=== PATIENT | male | born 1965 | race Caucasian/White ===

== ENCOUNTER 2017-02-26 14:53 | Observation (INO) | payer BC ==
[~2017-02-26] VITALS: Ht 172.7 cm; Wt 68.0 kg
--- NOTE | ~2017-02-26 | CON ---
PATIENT'S NAME: NANNETTE [facility] AGE: 51 Y [address] ROOM: [place] [address] LOCATION: GPCU ADMIT DATE: 02/26/2017 Consultation DISCHARGE DATE: FAMILY PHYSICIAN: ANNABELLA GARCIA MD ATTENDING PHYSICIAN: ANNABELLA GARCIA REFERRING PHYSICIAN: Vilma Pelayo MD REASON FOR CONSULT: Abdominal pain/chest pain. HISTORY OF PRESENT ILLNESS: This is a 51-year-old male, who was admitted through emergency room in view of history of epigastric and chest discomfort in association with nocturnal dyspnea and associated anxiety. 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 I was asked to see him in regard to this issue. Further history reveals that over the last 2-3 months, he has had trouble whereby he wakes up around 3 o'clock in the morning, breaks out in a sweat, complains of heartburn-like symptoms, at which time, he takes ibuprofen and Tums and that seems to give him temporary relief only to have similar symptoms again. He is not taking any other medications [id number]. He has not had any previous endoscopic evaluation. He denies any rectal bleeding, melena, loss of weight, or loss of appetite. He denies any dysphagia. Further, incriminating factors include use of marijuana, smoking, alcohol, and use of nonsteroidals as noted above. PAST MEDICAL HISTORY: 1. Hypertension. 2. Diabetes. 3. Previous history of smoking. PAST SURGICAL HISTORY: None. MEDICATIONS: On admission included: 1. Insulin. 2. Ibuprofen. 3. Fbmz-iuz-nfuxmit antacids. ALLERGIES: NONE KNOWN. PATIENT'S NAME: CHAS BRUNSON [facility] AGE: 51 Y [address] 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 Prior to that, has had 37- pack-year smoking. Occasional alcohol use and routine use of THC. FAMILY HISTORY: None for GI cancer or coronary artery disease. REVIEW OF SYSTEMS: The 10-point review of systems is otherwise negative except as noted in HPI. PHYSICAL EXAMINATION: GENERAL: A well-developed, well-nourished man in no acute distress. VITAL SIGNS: Stable. He is afebrile. HEENT: Atraumatic and normocephalic. Nonicteric sclerae. Pupils are round and reactive. NECK: Supple. No palpable nodes, no thyromegaly. CHEST: Clear to auscultation. HEART: S1, S2 normal. ABDOMEN: Soft and benign with no palpable masses or tenderness. EXTREMITIES: Pulses well-palpable. No edema. NEUROLOGIC: Awake, alert, appropriate without any focal deficits. LABORATORY DATA: Labs are reviewed and reveal normal CBC, normal amylase and lipase, and normal chemistry panel. ASSESSMENT AND PLAN: A 51-year-old male presenting to ER with history of epigastric chest pain and associated shortness of breath. Underwent cardiac workup, which was reported as negative. He does have symptoms to suggest acid reflux ongoing over the last 3 months, possibly exacerbated as per the use of ibuprofen, alcohol, previous smoking, and THC use. He may have associated gastroparesis, which will predispose him to reflux disease in view of associated diabetes. We discussed anti-reflux measures as well as to discontinue all gastric irritants. We will place him on Protonix 40 mg twice daily and proceed with upper endoscopy. Further recommendations post endoscopy. Thank you for this consult. PATIENT'S NAME: CHAS BRUNSON [facility] AGE: 51 Y [address] ROOM: [address] [address] LOCATION: GPCU ADMIT DATE: 02/26/2017 Consultation DISCHARGE DATE: FAMILY PHYSICIAN: ANNABELLA GARCIA MD ATTENDING PHYSICIAN: ANNABELLA GARCIA MD AM/modl /[id number] d: 02/28/17 0833 t: 02/28/17 1522, CONSULTATION REPORT
--- NOTE | ~2017-02-26 | HP ---
PATIENT'S NAME: CHAS BRUNSON [facility] AGE: 51 Y [address] ROOM: [place] [address] LOCATION: GPCU ADMIT DATE: 02/26/2017 History & Physical DISCHARGE DATE: FAMILY PHYSICIAN: ANNABELLA GARCIA MD ATTENDING PHYSICIAN: ANNABELLA GARCIA DATE OF SERVICE: CHIEF COMPLAINT: Chest pain. HISTORY OF PRESENT ILLNESS: The patient is a 51-year-old, male who is a type 1 diabetic. He has had some mild shortness of breath at night. Some anxiety with shortness of breath. He had some symptoms the day prior to admission in the ER with chest discomfort. Here in the emergency room, he was found here to have acute coronary insufficiency with ST changes on his EKG. When I see him, he is resting quietly in bed in PCU on heparin and has no chest pain. CURRENT MEDICATIONS: See nurse's note. SOCIAL HISTORY: He is and has a couple. Two to three glasses of whiskey 5 times a week. Occasionally, smokes marijuana. ALLERGIES: NONE. PREVIOUS SURGERIES/OPERATION: Clavicle on left side. FAMILY HISTORY: Negative for bleeding disorder or coronary artery disease. REVIEW OF SYSTEMS: HEENT: No recent visual changes. ENDOCRINE: He is diabetic type 1 as mentioned. HEART: As above. GI: No nausea, vomiting, diarrhea, dysphagia recently, other than having to use Rolaids p.r.n. : No dysuria or frequency. EXTREMITIES: Negative. PATIENT'S NAME: NANNETTE [facility] AGE: 51 Y [address] ROOM: [place] [address] LOCATION: GPCU ADMIT DATE: 02/26/2017 History & Physical DISCHARGE DATE: FAMILY PHYSICIAN: ANNABELLA GARCIA MD ATTENDING PHYSICIAN: ANNABELLA GARCIA NEUROLOGIC: Negative. PHYSICAL EXAMINATION: GENERAL: A red-haired male, lying in bed. HEENT: Shows pupils reactive to light. TMs not visualized. Mouth: Shows teeth in poor repair. Posterior pharynx clear. NECK: Unremarkable. I do not hear carotid bruit. Thyroid not enlarged. LUNGS: Clear without wheeze or rub. HEART: Shows no murmur, gallop, or rub. ABDOMEN: Benign without point tenderness or mass. PELVIC/RECTAL: Not done. ASSESSMENT: 1. Chest pain. 2. Abnormal EKG. 3. Type 1 diabetes mellitus. PLAN: Cardiology consultation. Continue heparin IV and further treatment as indicated. MD ADAN MCCORMACK/robinl /[id number] D: [id number] T: [id number] HISTORY & PHYSICAL
--- NOTE | ~2017-02-26 | CATH ---
Cardiac Diagnostic Report Demographics Patient Name NANNETTE Ellis Gender Male Date of 1965 Age 51 year(s) Patient Number [id number] Date of Study 02/27/2017 Visit Number [id number] Room Number G6[address] [place] [id number] Ht 172.72 cm Wt 67.59 kg Referring Guerita Ruby Primary Physician Physician Performing Pierce Secondary Physician Physician Vilma SCHMIDT Diagnostic Pierce Assisting Physician Physician Vilma SCHMIDT Interventional Physician Light Rail Vehicle Operator Physician Findings and Conclusions Diagnostic Findings and Conclusion Normal LVEDP 10. Calcification involving proximal coronaries. D2 2mm mod to severe disease. EKG changes difficult to explain on the basis of coronary anatomy. Diagnostic Recommendations Medical therapy. Procedure Description The patient was brought to the diagnostic cardiac catheterization-EP laboratory in the fasting, non-sedated state. Informed consent was obtained in the written and verbal form after the risks and benefits were explained. The patient had no further questions and agreed to proceed. The planned puncture-incision site(s) were shaved and prepped with ChloraPrep and draped in the usual sterile manner. Conscious sedation, supplemental oxygen, and pain control medications were delivered by a registered nurse under physician guidance. Surface ECG rhythm, blood pressure measurement, and pulse oximetry were monitored throughout the procedure. Arterial access. The access site was infiltrated with lidocaine. The vessel was entered with the Seldinger technique. A sheath was advanced into the vessel and used for catheter placement. Selective left coronary angiography. A catheter was advanced into the left coronary vessel ostium under Fluoroscopic guidance. Contrast was injected by hand. Images were obtained in multiple projections. Selective right coronary angiography. A catheter was advanced into the right coronary vessel ostium under fluoroscopic guidance. Contrast was injected by hand. Images were obtained in multiple projections. Left heart catheterization. A catheter was advanced across the aortic valve to the left ventricle under fluoroscopic guidance. Resting hemodynamics were obtained. Arterial artery hemostasis was achieved. The patient was transferred to a regular nursing floor via cart accompanied by a nurse. The patient left the laboratory in stable condition. Diagnostic Cath Status: Urgent Procedure Procedure Type Diagnostic procedure:Angiography:, Coronary Angios w/[facility] Indications: Chest pain and Non-ST elevation. The procedure was explained in detail to the patient. Risks, complications and alternative treatments were reviewed. Written consent was obtained. Medications Reviewed with Patient prior to Procedure. Angiographic Findings Dominance: Right Cardiac Arteries and Lesion Findings LMCA: Lesion on LMCA: Distal subsection.20% stenosis . LAD: Lesion on Mid LAD: 40% stenosis . Lesion on 2nd Diag: Ostial.50% stenosis . Lesion on 1st Diag: Proximal subsection.25% stenosis . Lesion on 2nd Diag: Mid subsection.70% stenosis . Lesion on 2nd Diag: Distal subsection.50% stenosis . LCx: Abnormal.Mild diffuse disease. RCA: Mild diffuse disease. Lesion on Mid RCA: 25% stenosis . Ramus: Abnormal.Mild diffuse disease. Coronary Tree Procedure Data Procedure Date Date: 02/27/2017Start: 12:09 PMEnd: 12:35 PM Entry Locations - Retrograde Percutaneous access was performed through the Right Femoral vein (Primary location). A 6 Fr sheath was inserted. Hemostasis was successfully obtained using Angio-Seal STS PLUS ([facility]). Closure Comments: Deployed by Kamran Morris RT.. Procedure Medications Order and Administration + + +-------+ + !Time !Medication !Dosage !Route ! + + +-------+ + !02/27/2017 12:02 PM !Fentanyl !50 mcg !I.V. ! + + +-------+ + !02/27/2017 12:02 PM !Versed !1 mg !I.V. ! + + +-------+ + !02/27/2017 12:14 PM !0.9% NaCl !100 ml !I.V. drip ! + + +-------+ + !02/27/2017 12:31 PM !Heparin (ACC_3) ! !I.V. ! + + +-------+ + !02/27/2017 12:31 PM !Nitroglycerin ! !I.V. drip ! + + +-------+ + Devices Used - A6 Fr. BS JR 4 Diag. Catheterwas used for:RCA Intervention. - A6 Fr. BS JL 4 Diag. Catheterwas used for:Left coronary angiography. Contrast Material - Isovue 10566 ml Fluoroscopy Time: Diagnostic: 3:24 minutes. Total: 3:24 minutes. Fluoroscopy Dose: Diagnostic: 833 mGy. Total: 833 mGy. Estimated Blood Loss: 15 ml. Medical History Performed Procedures and Imaging Results - No ACC stress or imaging studies were performed. Allergies - No known allergies. Risk Factors The patient risk factors include:insulin-treated diabetes mellitus, last creatinine: 1.2 mg/dl, creatinine clearance: 69.62 ml/min and Current/Recent(w/in 1 year) tobacco use. Admission Data Admission Date: 02/26/2017 Admission Time: 04:46 PM Admit Source: Emergency department Insurance Payors: Private health insurance. Admission Medications + +------+-----+---------+---------+ + + !Medication !Dosage!Times!Last !Last !Administered !Comments ! ! ! !Per !Delivery !Delivery ! ! ! ! ! !Day !Date !Time ! ! ! + +------+-----+---------+---------+ + + !Unfractionated ! ! ! ! !Yes ! ! !Heparin (any) ! ! ! ! ! ! ! + +------+-----+---------+---------+ + + !Nitrates (iv or! ! ! ! !Yes ! ! !buccal) ! ! ! ! ! ! ! + +------+-----+---------+---------+ + + Clinical Evaluation Leading to Procedure - The patient's CAD presentation was assessed as: Non-STEMI. - The patient's anginal syndrome during the past two weeks was assessed as: Class IV according to the [place] Cardiovascular Society Classification System (CCS). Hemodynamics Condition: Rest O2 Consumption: Estimated: 211.48Heart Rate: 65 bpm Pressures (mmHg) +-----+ + !Site !Pressure ! +-----+ + !LV !129/2 ,10 ! +-----+ + !LV !123/1 ,10 ! +-----+ + !AO !124/55 (81) ! +-----+ + !LV !122/1 ,10 ! +-----+ + !AO !124/54 (80) ! +-----+ + Valve Gradients and Areas + +---------+---------+---------+ +---------+ + !Valve !Peak !Mean !Area !Index !Flow !Source ! + +---------+---------+---------+ +---------+ + !Aortic !0 !0 ! ! ! ! ! + +---------+---------+---------+ +---------+ + !Aortic !0 !0 ! ! ! ! ! + +---------+---------+---------+ +---------+ + Shunts Oxygen Values O2 Capacity 214.88 O2 Consumption 211.48 Signatures dtt: Vilma Pelayo dtd: 02/27/17 1209 Physician Self Edit
--- NOTE | ~2017-02-26 | ECHO ---
Transthoracic Echocardiography Report (TTE) Demographics Patient Name CHAS BRUNSON Date of Study 02/27/2017 Patient Number [id number] Visit Number [id number] Date of 1965 Room Number G6303 Gender Male Number Age 51 year(s) Referring Pierce Esparza Solar Field Service Technician Physician Physician Interpreting Pierce Esparza Medicare Interviewer Physician Supervising Ordering MD/MLP Physician Nurse Stress Freight Checker Conclusions Contractility Score Summary At rest the following contractility abnormalities were noted: Hypokinesis of the Apical inferior, the Apical septal, the Apical lateral, the Apical anterior and the Apical cap segments. Contractility of all other segments appeared normal. Summary The estimated left ventricular ejection fraction is 45%.Distal half of the anterior wall,septum and apex are moderately hypertrophied and moderate to severely hypokinetic.Rest of LV segments are of normal thickness and motion.Normal LV internal dimensions. Mild tricuspid regurgitation by color Doppler. Procedure Type of Study TTE procedure:2D Echocardiogram. Procedure Date Date: 02/27/2017 Start: 07:03 AM Allergies - No known allergies. M-Mode/2D Measurements LV Diastolic Dimension: 4.83 cm LV Systolic Dimension: 3.2 cm LV Septum Diastolic: 0.98 cm LV PW Diastolic: 0.77 cm AO Root Dimension: 2 cm LA Dimension: 2.9 cm RV Diastolic Dimension: 2.87 cm LA volume: 31 ml LVOT: 2.1 cm RV Base: 2.63 cm LVOT VTI: 17.2 cm RV Mid: 2.05 cm LV Stroke volume: 59.54 ml TAPSE: 2.86 cm TDI-S': 12.9 cm/s Doppler Measurements AV Peak Velocity: 1.38 m/s MV Peak E-Wave: 0.79 m/s AV Peak Gradient: 7.62 mmHg MV Peak A-Wave: 0.53 m/s AV Mean Gradient: 5 mmHg MV E/A Ratio: 1.5 LVOT Peak Velocity: 0.99 m/s MV P1/2t: 75 msec TR Gradient:21.9 mmHg PV Peak Velocity: 1.13 m/s Estimated RAP:5 mmHg PV Peak Gradient: 5.11 mmHg Estimated RVSP: 27 mmHg Estimated PASP: 26.9 mmHg E' Septal Velocity: 0.06 m/s A' Septal Velocity: 0.1 m/s E' Lateral Velocity: 0.06 m/s A' Lateral Velocity: 0.16 m/s Findings Left Ventricle Distal half of anterior wall, septum and apex are atleast moderately hypertrophic with moderate to severe hypokinesia.Rest of LV segments reveal normal wall thickness and motion.LV internal dimension is normal.LVEF is 45-50%. Right Ventricle Normal right ventricle structure and function. Left Atrium Normal left atrial size. There is no evidence of patent foramen ovale or atrial septal defect by color Doppler. Right Atrium Normal right atrial size. IVC measures 1.36 cm with inspiratory collapse. Mitral Valve Normal mitral valve structure and function. Trivial mitral regurgitation by color Doppler. Aortic Valve Normal aortic valve structure and function. Tricuspid Valve Mild tricuspid regurgitation by color Doppler. Pulmonic Valve Normal pulmonic valve structure and function. Pericardial Effusion No evidence of pericardial effusion. Miscellaneous Visualized portions of the aortic root and ascending aorta appear normal in size. Pleural Effusion No evidence of pleural effusion. Contractility Score LV regional wall motion:(0-Non visualized 1-Normal 2-Hypokinesis 3-Akinesis 4-Dyskinesis 5-Aneurysm) Signature dtt: Vilma Pelayo dtd: 02/27/17 0703 Physician Self Edit
--- NOTE | ~2017-02-26 | DS ---
PATIENT'S NAME: CHAS BRUNSON [facility] AGE: 51 Y [address] ROOM: [address] [address] LOCATION: GPCU ADMIT DATE: 02/26/2017 Discharge Summary DISCHARGE DATE: 02/28/2017 FAMILY PHYSICIAN: Annabella Dexter MD ATTENDING PHYSICIAN: Annabella Dexter FINAL DIAGNOSIS: 1. Chest pain, from nonobstructive coronary artery disease. 2. Diabetes mellitus type 1 with hyperglycemia. 3. Gastroesophageal reflux, status post upper GI endoscopy on day of dismissal. 4. Status post heart catheterization per Dr. Pelayo, see procedure note. HOSPITAL COURSE: This is a 51-year-old male was admitted to the hospital with left chest pain. He had changed in his enzymes consistent with myocardial ischemia, see Dr. Pelayo's note. The patient was admitted to the hospital and placed on PCU and Dr. Pelayo directed his care. The patient was taken to the dental laboratory technician on the day of date that shown and was found to have nonobstructive coronary artery disease, and had no intervention done. Because of the patient's chest pain, Dr. Pelayo consulted our local physician Dr. Goncalves and the patient went on to have an upper GI endoscopy. With findings described as per Dr. Goncalves's note. The patient was felt that he had maximal hospital benefit and had his procedures done without complication and was dismissed to home on the medicines per Cardiology and Gastroenterology. DIET: At home, he may have a diabetic diet. ACTIVITY: As tolerated. FOLLOWUP: Follow up with tire sorter and mortgage processing manager. He will be seen in the office in 2 weeks. He will be seen back earlier in the office, if he has chest pain, shortness of breath, nausea, vomiting, diarrhea, and he understands. ADDENDUM: He is dismissed on the med list shown. ANNABELLA DEXTER MD PATIENT'S NAME: CHAS BRUNSON [facility] AGE: 51 Y [address] ROOM: G6303 [place], [place] [address] [facility] ADMIT DATE: 02/26/2017 Discharge Summary DISCHARGE DATE: 02/28/2017 FAMILY PHYSICIAN: Annabella Dexter MD ATTENDING PHYSICIAN: Annabella Dexter CARD FOLDER/modl /[id number] d: 03/01/17 1709 t: 03/06/17 1208, DISCHARGE SUMMARY
--- NOTE | ~2017-02-26 | ER ---
PATIENT'S NAME: CHAS BRUNSON [facility] AGE: 51 Y [address] ROOM: [place] [address] LOCATION: [facility] ADMIT DATE: 02/26/2017 ER/Outpatient Report DISCHARGE DATE: FAMILY PHYSICIAN: ANNABELLA DEXTER MD ATTENDING PHYSICIAN: ANNABELLA DEXTER CHIEF COMPLAINT: Chest pain, dizziness, dry eyes, shaking, and shortness of breath. HISTORY OF PRESENT ILLNESS: Over the last week or two, the patient has been noticing that he has been having multiple episodes of left-sided chest pain associated with some sweating and shortness of breath. He also states that he has been having some blurry vision, but says he can see fine, it is just that his eyes feel very scratchy. He also has some epigastric discomfort. He is an alcoholic according to himself. He has used marijuana recently. He is a smoker. He also has diabetes and controls it with insulin. The primary care is Dr. Dexter. He denies any chest pressure at this time, and all symptoms are kind of in the epigastrium. He has not tried anything to try to make this better and has not been seen for this issue in the past. PAST MEDICAL HISTORY: Documented on the record and reviewed by me. SOCIAL HISTORY: Documented on the record and reviewed by me. MEDICATIONS: Documented on the record and reviewed by me. ALLERGIES: DOCUMENTED ON THE RECORD AND REVIEWED BY ME. REVIEW OF SYSTEMS: All systems reviewed and negative except as noted in the HPI. PHYSICAL EXAMINATION: VITAL SIGNS: Blood pressure is 187/90, pulse is 68, respiratory rate is 16, temperature is 96.9, SpO2 is 99% on room air. Pain is 3/10. GENERAL: Age-appropriate male. No obvious pain or distress, sitting upright on the exam table. NEURO: The patient is awake and alert. He moves all extremities appropriately. No obvious asymmetry on exam. HEENT: Normocephalic, atraumatic. Eyes are PERRL. There is no cobblestoning of the conjunctival mucosa. Sclerae are white and clear. No significant PATIENT'S NAME: CHAS BRUNSON [facility] AGE: 51 Y [address] ROOM: [place] [address] LOCATION: GPCU ADMIT DATE: 02/26/2017 ER/Outpatient Report DISCHARGE DATE: FAMILY PHYSICIAN: ANNABELLA DEXTER MD ATTENDING PHYSICIAN: ANNABELLA DEXTER. Vision is grossly intact. He is able to read letters 3/16th of an inch high at 2 feet. He has no visual field deficits. No nystagmus. Oropharynx is clean and dry. NECK: Supple. Trachea is midline. HEART: Regular rate and rhythm with no murmurs. LUNGS: Grossly clear to auscultation bilaterally with no rhonchi, wheezes, or rales. Regularly occasional crackle at the base. BACK: Nontender to palpation throughout. ABDOMEN: Benign with no rebound, masses, guarding, or tenderness outside of the epigastrium, epigastrium slightly tender to palpation. EXTREMITIES: Well perfused. No deformities. No edema appreciated. No erythema. SKIN: Warm, dry, and intact. No obvious rashes or abnormalities. LABORATORY DATA AND X-RAYS: Chest x-ray grossly unremarkable per my read. Procalcitonin is below threshold. CMS is notable for glucose of 281, albumin of 3.3, otherwise unremarkable. Magnesium of 2.3. CPK of 82, CK-MB is 1.8, troponin-I of 0.063, repeat is 0.064. Serum ketones are negative. Alcohol is below threshold. Amylase and lipase are 38 and 66 respectively. CRP is 0.74. Blood gas, 7.49, pCO2 is 38, pO2 is 66, CO2 is 30 on a venous sample. Lactate is 1.4. CBC without abnormalities. INR 0.94. EKG, sinus rhythm, rate of 65 with normal intervals and left axis deviation. There are biphasic T-waves in lead V3 with diffuse T-wave inversions throughout, no comparison available. IMPRESSION: Chest pain with Wellens syndrome. EMERGENCY DEPARTMENT COURSE: The patient was seen and evaluated as above. DKA and metabolic derangement were considered, however, EKG was very concerning. Troponin is detectable. We will diagnose him with Wellens syndrome and impending ischemic heart disease. He was started on a heparin drip and nitroglycerin drip. His pain was adequately controlled. His vital signs remained stable. He will be admitted to Dr. Dexter for further evaluation and treatment. I did talk to Dr. Pelayo about this individual, and he will need to see the patient at his nearest convenience. MICHAEL GRAVES MD PATIENT'S NAME: CHAS BRUNSON [facility] AGE: 51 Y [address] ROOM: [place] [address] LOCATION: [facility] ADMIT DATE: 02/26/2017 ER/Outpatient Report DISCHARGE DATE: FAMILY PHYSICIAN: ANNABELLA DEXTER MD ATTENDING PHYSICIAN: ANNABELLA DEXTER JH/modl /[id number] d: 02/27/17 0014 t: 03/01/17 2223, OUTPATIENT REPORT
--- NOTE | ~2017-02-26 | CON ---
PATIENT'S NAME: CHAS WHITLOCK [facility] AGE: 51 Y [address] ROOM: [address] [address] LOCATION: GPCU ADMIT DATE: 02/26/2017 Consultation DISCHARGE DATE: FAMILY PHYSICIAN: ANNABELLA DEXTER MD ATTENDING PHYSICIAN: ANNABELLA DEXTER REFERRING PHYSICIAN: Vilma Pelayo MD Dear Dr. Dexter: Thank you for asking me to see Mr. 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 For to past 2 months, he has been having what sounds like a paroxysmal nocturnal dyspnea that wakes him up around 3 in the morning and he will be up for about 1-2 hours and usually is extremely anxiety-provoking shortness of breath without any actual chest pain. For about the same time, he has also been noticing upper abdominal heartburn-like symptom. He has been taking lot of Rolaids and Tums, thinking they are ulcers. They tend to last about 30 minutes with associated sweating, nausea, and shortness of breath. They are not particularly related to exertion. He is currently not on any regular exercise program. Yesterday, he had a lot of these chest symptoms and today morning again it reoccurred and he came to the emergency room where an EKG showed ST-T wave changes consistent with acute coronary insufficiency and he is admitted to the PCU with heparin and nitroglycerin and aspirin. Yesterday, he also felt a little dizzy without syncope. He has some palpitations and denies any ankle swelling. MEDICAL HISTORY: The patient has history of hypertension. He has diabetes as mentioned earlier. His lipids are unknown. He quit smoking 3 months ago and there is no family history of premature coronary artery disease. He denies CA or angina or nitroglycerin use. He denies rheumatic fever. There is no history of heart murmur, heart failure, or dilated or enlarged heart. He has skipped heartbeats. MEDICATIONS: 1. Insulin. 2. Humulin. ALLERGIES: NONE. PAST MEDICAL HISTORY: Fractured clavicle on the left side. PATIENT'S NAME: CHAS WHITLOCK [facility] AGE: 51 Y [address] ROOM: [address] [address] LOCATION: GPCU ADMIT DATE: 02/26/2017 Consultation DISCHARGE DATE: FAMILY PHYSICIAN: ANNABELLA DEXTER MD ATTENDING PHYSICIAN: ANNABELLA DEXTER SOCIAL HISTORY: He is . He denied he drinks 2-3 glasses of whisky 5 times a week. He also uses recreational marijuana. His appetite is good. Weight is stable. Sleep is normal. FAMILY HISTORY: No premature coronary artery disease. REVIEW OF SYSTEMS: A 12-point review of systems revealed, 1. TIA at age of 7. He thinks it could be insulin reaction versus TIA and he had at that time left-sided weakness. 2. Sinus problems. 3. Dry eyes. 4. Dry cough. 5. History of wheezing. 6. History of kidney stones. 7. DJD. 8. Anxiety and depression. PHYSICAL EXAMINATION: VITAL SIGNS: On examination, his blood pressure is 130/80, heart rate is 70 and regular, respirations are 18, and afebrile. HEENT: Normal. NECK: Supple. No JVD, thyromegaly, lymphadenopathy, or carotid bruit. CARDIAC: PMI is not well located. First and second heart sounds are regular. There are no added sounds or murmur. CHEST: Clear to auscultation. ABDOMEN: Soft and nontender. EXTREMITIES: Reveal no edema. CENTRAL NERVOUS SYSTEM: Intact. DIAGNOSTIC DATA: His 12-lead EKG reveals T-wave inversion consistent with an anterolateral ischemia. ASSESSMENT: Acute ischemic syndrome with a possible unstable angina and paroxysmal nocturnal dyspnea. We will rule him out for CA and do an echocardiogram followed by a cardiac catheterization. Further management will depend on his coronary anatomy. Again, I appreciate this opportunity to participate in the care of Mr. Whitlock. PATIENT'S NAME: CHAS WHITLOCK [facility] AGE: 51 Y [address] ROOM: [place] [address] LOCATION: GPCU ADMIT DATE: 02/26/2017 Consultation DISCHARGE DATE: FAMILY PHYSICIAN: ANNABELLA DEXTER MD ATTENDING PHYSICIAN: ANNABELLA DEXTER MD SHELBY JULIO/modl /[id number] d: 02/27/17 0016 t: 03/01/17 1453, CONSULTATION REPORT
--- NOTE | ~2017-02-26 | CON ---
PATIENT'S NAME: CHAS [facility] AGE: 51 Y [address] ROOM: [place] [address] LOCATION: GPCU ADMIT DATE: 02/26/2017 Consultation DISCHARGE DATE: 02/28/2017 FAMILY PHYSICIAN: ANNABELLA GARCIA MD ATTENDING PHYSICIAN: ANNABELLA GARCIA Added DOS per provider 04/28/2017 AO DATE OF CONSULTATION: 02/27/2017 REFERRING PHYSICIAN: Vilma Pelayo MD REASON FOR CONSULT: Abdominal pain/chest pain. HISTORY OF PRESENT ILLNESS: This is a 51-year-old male, who was admitted through emergency room in view of history of epigastric and chest discomfort in association with nocturnal dyspnea and associated anxiety. 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 I was asked to see him in regard to this issue. Further history reveals that over the last 2-3 months, he has had trouble whereby he wakes up around 3 o'clock in the morning, breaks out in a sweat, complains of heartburn-like symptoms, at which time, he takes ibuprofen and Tums and that seems to give him temporary relief only to have similar symptoms again. He is not taking any other medications [id number]. He has not had any previous endoscopic evaluation. He denies any rectal bleeding, melena, loss of weight, or loss of appetite. He denies any dysphagia. Further, incriminating factors include use of marijuana, smoking, alcohol, and use of nonsteroidals as noted above. PAST MEDICAL HISTORY: 1. Hypertension. 2. Diabetes. 3. Previous history of smoking. PAST SURGICAL HISTORY: None. MEDICATIONS: On admission included: 1. Insulin. 2. Ibuprofen. 3. Qnvd-vap-rtlkcvj antacids. PATIENT'S NAME: CHAS [facility] AGE: 51 Y [address] ROOM: [place] [address] LOCATION: GPCU ADMIT DATE: 02/26/2017 Consultation DISCHARGE DATE: 02/28/2017 FAMILY PHYSICIAN: ANNABELLA GARCIA MD ATTENDING PHYSICIAN: ANNABELLA GARCIA ALLERGIES: NONE KNOWN. 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 Prior to that, has had 37- pack-year smoking. Occasional alcohol use and routine use of THC. FAMILY HISTORY: None for GI cancer or coronary artery disease. REVIEW OF SYSTEMS: The 10-point review of systems is otherwise negative except as noted in HPI. PHYSICAL EXAMINATION: GENERAL: A well-developed, well-nourished man in no acute distress. VITAL SIGNS: Stable. He is afebrile. HEENT: Atraumatic and normocephalic. Nonicteric sclerae. Pupils are round and reactive. NECK: Supple. No palpable nodes, no thyromegaly. CHEST: Clear to auscultation. HEART: S1, S2 normal. ABDOMEN: Soft and benign with no palpable masses or tenderness. EXTREMITIES: Pulses well-palpable. No edema. NEUROLOGIC: Awake, alert, appropriate without any focal deficits. LABORATORY DATA: Labs are reviewed and reveal normal CBC, normal amylase and lipase, and normal chemistry panel. ASSESSMENT AND PLAN: A 51-year-old male presenting to ER with history of epigastric chest pain and associated shortness of breath. Underwent cardiac workup, which was reported as negative. He does have symptoms to suggest acid reflux ongoing over the last 3 months, possibly exacerbated as per the use of ibuprofen, alcohol, previous smoking, and THC use. He may have associated gastroparesis, which will predispose him to reflux disease in view of associated diabetes. We discussed anti-reflux measures as well as to discontinue all gastric irritants. We will place him on Protonix 40 mg twice daily and proceed with upper endoscopy. Further recommendations post endoscopy. Thank you for this consult. PATIENT'S NAME: CHAS [facility] AGE: 51 Y [address] ROOM: [id number] [place], [place] [address] LOCATION: GPCU ADMIT DATE: 02/26/2017 Consultation DISCHARGE DATE: 02/28/2017 FAMILY PHYSICIAN: ANNABELLA GARCIA MD ATTENDING PHYSICIAN: ANNABELLA GARCIA MARK RAIN MD AM/rachel /[id number] Added DOS per provider 04/28/2017 AO d: 02/28/17 0833 t: 04/28/17 1405, CONSULTATION REPORT
[2017-02-26 15:28] LABS: BASOPHIL # 0.1 K/uL (0.0-0.2); BASOPHIL % 1.3 %; EOSINOPHIL # 0.1 K/uL (0.0-0.5); EOSINOPHIL % 1.6 %; HEMOGLOBIN 15.8 g/dL (12.0-17.0); IMMATURE GRANULOCYTE % 0.4 %; MCH 29.6 pg (27.0-34.0); MCHC 34.3 gm/dL (32.0-36.5); MCV 86.3 fl (83.0-98.0); MONOCYTE # 0.6 K/uL (0.0-1.0); MONOCYTE % 8.7 %; MPV 11.2 fl (9.4-12.4); NEUTROPHIL # (ANC) 5.1 K/uL (1.4-9.0); NRBC % 0 /100WBC (0-0.00); PLATELET COUNT 264 K/uL (150-450); RBC 5.33 M/uL (4.00-6.00); WBC 6.9 K/uL (4.0-11.0)
[2017-02-26 15:36] LABS: INR - (THERAPEUTIC) 0.94 (0.92-1.07); PROTIME 9.9 SECONDS (9.8-11.4); PTT 26 SECONDS (25-32)
[2017-02-26 15:39] LABS: LACTATE 1.4 mEq/L (0.50-1.60); PCO2 38 mmHg (35-45); PO2 66 mmHg (80-90)
[2017-02-26 15:55] LABS: ALBUMIN 3.3 gm/dL (3.5-5.0); ALK PHOS 101 IU/L (33-138); ALT 33 IU/L (12-78); ANION GAP 11.9 (10.0-19.0); AST 17 IU/L (10-40); BLOOD UREA NITROGEN 20 mg/dL (6-24); CALCIUM 8.7 mg/dL (8.5-10.5); CHLORIDE 105 mMol/L (96-110); CO2 25 mMol/L (22-32); CPK 82 IU/L (35-332); CREATININE 1.2 mg/dL (0.6-1.3); ESTIMATED GFR (MDRD EQUATION) > 60; MAGNESIUM 2.3 mg/dL (1.8-2.6); POTASSIUM 3.9 mMol/L (3.7-5.1); SODIUM 138 mMol/L (135-145); TOTAL BILIRUBIN 0.6 mg/dL (0.0-1.5); TOTAL PROTEIN 6.6 g/dL (6.0-8.4)
[2017-02-26] MEDS ORDERED: NOVOLIN-N100 UNIT/M SUB-Q (18:05)
[2017-02-26] MEDS ORDERED: NOVOLIN N100 UNIT/1 SUB-Q (18:06)
[2017-02-26] MEDS ORDERED: NOVOLOG100 UNIT/M SUB-Q (18:10)
--- NOTE | 2017-02-26 18:24 | NUR ---
Significant Event:PT ARRIVED TO PCU, NO C/O PAIN. DR GARCIA NOTIFIED. DR Meadows WILL BE HERE TO SEE PT. ACCUCHECK 210. HEPARIN DRIP AND NTG INFUSING. 1ST PTTHP AT 2230. Follow up:
[2017-02-26 19:26] LABS: BARBITURATE NEGATIVE (NEGATIVE); COCAINE NEGATIVE (NEGATIVE); OPIATES NEGATIVE (NEGATIVE)
[2017-02-26 19:27] LABS: AMPHETAMINE NEGATIVE (NEGATIVE)
[2017-02-26] MEDS ORDERED: NOVOLIN-R100 UNIT/M SUB-Q (20:55)
--- NOTE | 2017-02-27 04:07 | NUR ---
a/o x4. vss on ra. afebrile. con't on nitro gtt at 3mcg. heparin at 1000-ptthp at 0530. sba. voids per urinal. fsbs at hs 276- mn 88- had snack. pt gets numbness in hands when sugar is low. anxious about today. no other +ciwa symptoms Plan: [facility] at 0900. echo before [facility]
[2017-02-27] MEDS ORDERED: ADVIL200 MG PO (09:48)
--- NOTE | 2017-02-27 16:16 | NUR ---
Significant Event: echo done this am. HEart cath negative today. R)Groin angiosealed soft c/d/i. No c/o cp. Tylenol for headache this am. Bedrest until 1900. NEGRO harding orders EGD in am, NPO at 0000. Protonix started po. Heparin/nitro off. NS done at 1800. Pt family/friends here with him today. Pt cooperative and calm. Follow up:
--- NOTE | 2017-02-28 03:24 | NUR ---
Pt a/o x4. vss on ra, afebrile. up adlib. groin site benign. pulses present. started on protonix yesterday. SL. FSBS at HS 276 given 3 units Regular, 4 Units NPH at pts request (DM type 1), rechecked at 2300ish at pt was 88. snack given. 50mg benadryl given for "head stuffiness." slept rest of night with no complaints Plan:CT chest today, EGD today, and possible d/c
[2017-02-28 04:17] LABS: CREATININE 1.1 mg/dL (0.6-1.3)
[2017-02-28 04:18] LABS: ESTIMATED GFR (MDRD EQUATION) > 60
--- NOTE | 2017-02-28 14:54 | NUR ---
PATIENT OUT OF PCU FLOOR FROM 1110 TO 1415 FOR EGD PROCEDURE. RETURNED AT 1415, A/O X 3. DENIES PAIN. ERIN KEN
[2017-02-28] MEDS ORDERED: PROTONIX40 MG PO (15:08)
[2017-02-28] MEDS ORDERED: ASPIRIN LO-DOSE81 MG PO (15:10)
[2017-02-28] MEDS ORDERED: LIPITOR80 MG PO (15:11)
--- NOTE | 2017-02-28 15:47 | NUR ---
Diabetes center note: [phone] Assisted patient in completing the Diabetes Survival Skills checklist and a copy is provided to patient, other copy applied to chart. Diabetes Management booklet provided and encouraged to review all topics necessary for self care at home. Patient is currently taking NPH and Regular insulin at home, as per his own sliding scale, states he has had type 1 diabetes for close to 50 years. In past patient did not have insurance coverage to assist with Long acting and rapid acting insulin (like Lantus and Humalog) At this time, patient is willing to seek more assistance and direction from Honey Day APRN at [facility] and /or Dr. Dexter to assist in transition to this type of new regimen. Patient current A1C was 9.8 % on 02/26/17, discussed risks of elevated A1C and goals of 6.5-7 % to assist in reducing other complications related to diabetes such as heart, eyes, kidneys and nerves. Family with patient in room at the time of teaching, son also has type 1 diabetes and supports changes in keeping father "healthy". Anxious for dismissal, states understanding education provided.
--- NOTE | 2017-02-28 17:48 | NUR ---
DISM. NOTE AT 1630 A/O X 3. AT BEDSIDE. REVIEW OF MEDS AND NEW MEDS WITH HANDOUTS, SIDE EFFECTS DISCUSSED. PRESCRIPTIONS GIVEN. FOLLOW UP APPT. DIET/ ACTIVITY HOME INSTRUCTIONS POST GROIN HEART CATH. PATIENT GIVEN DIABETIC TEACHING AND PLANS TO FOLLOW UP WITH [employer] [employer]GRAPHY MANAGER. PT. AND VOICED UNDERSTANDING
== END 2017-02-28 16:30 | disposition disaster alternative care site (69) ==
LOC: GMED 14:53 → GPCU 16:46
PROVIDERS: Emergency Medicine; Internal Medicine Interventional Cardiology; ADMIT Family Medicine
PROC: 0DB68ZX Excision of Stomach, Via Natural or Artificial Opening Endoscopic, Diagnostic (ICD-10-PCS; principal; 2017-02-28)
DX: K20.9 Esophagitis, unspecified (principal); K29.80 Duodenitis without bleeding; K29.70 Gastritis, unspecified, without bleeding; E10.43 Type 1 diabetes mellitus with diabetic autonomic (poly)neuropathy; K31.84 Gastroparesis; K21.9 Gastro-esophageal reflux disease without esophagitis; I25.10 Atherosclerotic heart disease of native coronary artery without angina pectoris; I10 Essential (primary) hypertension; E10.65 Type 1 diabetes mellitus with hyperglycemia; Z98.890 Other specified postprocedural states; Z87.891 Personal history of nicotine dependence
CPT/HCPCS: C1760; G0378; G0480; J1644; J2250; J3010; J7030

== ENCOUNTER 2017-05-07 15:25 | Observation (INO) | payer BC ==
[~2017-05-07] VITALS: Ht 172.7 cm; Wt 65.3 kg
--- NOTE | ~2017-05-07 | HP ---
PATIENT'S NAME: CHAS BRUNSON [facility] AGE: 51 Y [address] ROOM: [place] [id number] LOCATION: GPCU ADMIT DATE: 05/07/2017 History & Physical DISCHARGE DATE: FAMILY PHYSICIAN: ANNABELLA GARCIA MD ATTENDING PHYSICIAN: NICHOLAS SLAUGHTER V DATE OF SERVICE: CHIEF COMPLAINT: Nausea and vomiting. HISTORY OF PRESENT ILLNESS: The patient is a 51-year-old male with past medical history most significant for insulin-dependent diabetes. The patient admits to drinking at least 10 shots of Calvin Beam yesterday and forgetting to take his nighttime insulin. He developed progressive nausea, vomiting, and discomfort in the course of the day today. He endorses not being able to keep anything down. He endorses anuria. He endorses near-syncope associated with getting up. In the ER, the patient was found to be in mild DKA and has now been started on an insulin drip. He denies any chest pain, shortness of breath, or palpitations. REVIEW OF SYSTEMS: All systems have been reviewed and negative aside from pertinent positives mentioned above. PAST MEDICAL HISTORY: 1. Insulin-dependent diabetes, on NPH and sliding scale. 2. Coronary artery disease, status post catheterization earlier this fall with nonobstructive coronary artery disease, currently managed medically. 3. Essential hypertension. 4. Hypercholesterolemia. PAST SURGICAL HISTORY: Significant for recent cardiac catheterization. SOCIAL HISTORY: The patient admits to a distant history of polysubstance abuse. At this point, the patient endorses marijuana use and has recently quit cigarettes. Upon discussion of his alcohol use, he reports drinking daily "2-3 drinks." However, it is my very strong suspicion based on the affect of the patient and his spouse, that he actually drinks considerably more than that. When PATIENT'S NAME: CHAS BRUNSON [facility] AGE: 51 Y [address] ROOM: [address] [place] [id number] LOCATION: GPCU ADMIT DATE: 05/07/2017 History & Physical DISCHARGE DATE: FAMILY PHYSICIAN: ANNABELLA GARCIA MD ATTENDING PHYSICIAN: NICHOLAS SLAUGHTER V questioned about the possibility of alcohol abuse, the patient admits to likely having that problem. He reports that he gets very irritable and nervous when seizing alcohol use. FAMILY HISTORY: Reviewed and is noncontributory due to known underlying problem for this gentleman's presentation. CURRENT MEDICATIONS: 1. NovoLog sliding scale, NPH 8 in the morning, 4 at night. 2. Statin. 3. Aspirin. PHYSICAL EXAMINATION: VITAL SIGNS: At this point, his heart rate is 103, blood pressure 147/74, saturating 96% on room air, temperature is 98.6, respirations are in the low 20s. GENERAL APPEARANCE: This is a somewhat malnourished, middle-aged male, in no acute distress. NEUROLOGIC: Nonfocal. EYES: Shows pupils are equal and reactive to light. LYMPHATICS: Shows no cervical lymphadenopathy. ENDOCRINE: Shows no thyromegaly. LUNGS: Clear to auscultation. HEART: Rate is tachycardic and regular. GI: Abdomen is soft, nontender, and nondistended. : No costovertebral angle tenderness. VASCULAR: 2+ pedal pulses. MUSCULOSKELETAL: No muscle or joint abnormalities. PSYCHIATRIC: Reveals quite appropriate mood, cognition, and affect. SKIN: Shows some tenting but aside from that, warm and dry. LABORATORY DATA: Studies performed in the ER significant for an Accu-Chek of 424; venous pH of 7.3; anion gap of 20; creatinine of 1.6, up from the assumed baseline of 1.1- 1.2. Cardiac enzymes are negative. Ketones are positive at 1-16, white count is 17.1. Urinalysis shows 1000 glucose and 10-20 hyaline casts. ASSESSMENT AND PLAN: This is a 51-year-old male, who will be admitted with mild diabetic ketoacidosis as his primary presenting problem. Individual medical problems to be addressed are: 1. Diabetic ketoacidosis: At this point, the patient has been started on an PATIENT'S NAME: CHAS BRUNSON [facility] AGE: 51 Y [address] ROOM: [id number] [place], [place] [address] LOCATION: [facility] ADMIT DATE: 05/07/2017 History & Physical DISCHARGE DATE: FAMILY PHYSICIAN: ANNABELLA GARCIA MD ATTENDING PHYSICIAN: NICHOLAS SLAUGHTER V insulin drip. I suspect that he probably would not have to be on it for too long. We will convert him to his home sliding scale once his anion gap closes. We will also hydrate him at present with normal saline. We will change him to potassium-containing fluids once his potassium comes down. 2. Acute kidney injury: Given the presence of hyaline casts, the patient may be in some degree of acute tubular necrosis. He appears dehydrated, nevertheless, and we will hydrate and monitor his renal function. 3. Insulin-dependent diabetes: We will start him on his home sliding scale once the insulin drip is off. 4. Alcohol abuse: This is imputed from the history. At this point, I do not think the patient is in danger of withdrawal, but we will monitor him on telemetry and provide him with p.r.n. Ativan for the time being. I believe the patient would benefit from outpatient therapy, and we will address that close to the time of discharge. 5. Coronary artery disease. We will continue his aspirin and statin. Additional management will depend on clinical course. Time dedicated to patient encounter is 35 minutes. MD ABBY WASHINGTON/rachel /[id number] D: T: HISTORY & PHYSICAL
--- NOTE | ~2017-05-07 | ER ---
PATIENT'S NAME: CHAS BRUNSON [facility] AGE: 51 Y [address] ROOM: [place] [address] LOCATION: GPCU ADMIT DATE: 05/07/2017 ER/Outpatient Report DISCHARGE DATE: FAMILY PHYSICIAN: ANNABELLA DEXTER MD ATTENDING PHYSICIAN: NICHOLAS SLAUGHTER V CHIEF COMPLAINT: Nausea and vomiting with some abdominal pain. HISTORY OF PRESENT ILLNESS: The patient states that he had more alcohol last night than usual; however at 4:00 a.m., he developed some abdominal discomfort, nausea, and vomiting. He states he has vomited 1-2 times an hour since then. He has tried multiple things to try to make his belly feel better with no relief. He vomits everything he tries to put down. He denies any other specific complaints such as fevers, chills, cough, sore throat, abdominal pain, dysuria, back pain, or extremity pain. PAST MEDICAL HISTORY: Documented on the record and reviewed by me and includes diabetes. SOCIAL HISTORY: Documented on the record and reviewed by me. MEDICATIONS: Documented on the record and reviewed by me. ALLERGIES: DOCUMENTED ON THE RECORD AND REVIEWED BY ME. REVIEW OF SYSTEMS: All systems were reviewed and negative except as noted in the HPI. PHYSICAL EXAMINATION: VITAL SIGNS: Blood pressure 184/78, pulse 108, respiratory rate 20, temperature 98.6, and SpO2 is 98% on room air. Pain 0/10. GENERAL: Age-appropriate male, sitting upright on the exam table. No apparent pain or distress with a bucket of vomit between his legs. NEUROLOGIC: Awake and alert. GCS 15. No focal deficits. No asymmetry. No gait abnormalities. Unremarkable exam. HEENT: Normocephalic, atraumatic. Eyes are PERRL. Oropharynx is clear. NECK: Supple. Trachea is midline. HEART: Tachycardia, regular otherwise. No murmurs appreciated. LUNGS: Grossly clear to auscultation bilateral with no rhonchi, wheezes, or rales. PATIENT'S NAME: CHAS BRUNSON [facility] AGE: 51 Y [address] ROOM: [address] [address] LOCATION: GPCU ADMIT DATE: 05/07/2017 ER/Outpatient Report DISCHARGE DATE: FAMILY PHYSICIAN: ANNABELLA DEXTER MD ATTENDING PHYSICIAN: NICHOLAS SLAUGHTER V ABDOMEN: Soft, nontender, and nondistended. No rebound or guarding or masses. BACK: Normal to inspection and palpation. EXTREMITIES: Warm and well perfused. SKIN: Warm, dry, and intact. LABORATORY DATA AND X-RAYS: Chest x-ray: Unremarkable per my review. EKG: Sinus tachycardia, rate of 100 with otherwise normal intervals and left-axis deviation. No clear abnormalities appreciated. Labs: Venous gas; pH 7.30, pCO2 is 45, bicarb 22.1, FiO2 is noncontributory. Lactate is 6.2. White count 17.1, hemoglobin 17.8, and platelets 274. INR is less than 1. Serum ketones positive at 1-16. Sodium is 140, potassium is 4.2, chloride is 98, CO2 is 22, glucose is 458, BUN is 23, creatinine is 1.6, and GFR is 46. LFTs grossly unremarkable. Alcohol is undetectable. Amylase and lipase within normal limits. Free T4 and TSH appropriate for the patient. Urinalysis with no evidence of infection, but glucosuria present. IMPRESSION: 1. Diabetic ketoacidosis. 2. Intractable nausea and vomiting. 3. Anion gap acidosis secondary to diabetic ketoacidosis and lactic acidemia. 4. Lactic acidemia. 5. Tachycardia, improved. EMERGENCY DEPARTMENT COURSE: The patient was seen and evaluated as above. Volume resuscitation with normal saline was initiated. Accu-Chek were obtained, in 420 range. Laboratory confirms elevated ketones with anion gap acidosis, a diagnosis of DKA was made at that time. Insulin drip was initiated. He was given a second liter of normal saline and then started on D5 LR at 200 mL an hour. Tachycardia did improve to around 100 beats a minute, he had been around 120 mostly upon arrival. He was feeling better. I had contacted the Hospitalist Service for evaluation and admission. He was seen by Dr. Slaughter. CRITICAL CARE: 40 minutes of critical care time was spent on this patient in patient evaluation and re-evaluation and ordering and interpreting blood gas, labs, chest x-ray, and EKG. Critical care time is warranted for metabolic derangement and life-threatening diagnosis of DKA. The patient was stabilized and ultimately deemed appropriate for the PCU. He will be admitted to the floor for further evaluation and treatment under the care of the Hospitalist Service. I did discuss the case with Dr. Dexter, the patient's primary care provider, and he is deferred to the Hospitalist Service for this case. PATIENT'S NAME: CHAS BRUNSON [facility] AGE: 51 Y [address] ROOM: [place] [address] [facility] AD[facility] DATE: 05/07/2017 ER/Outpatient Report DISCHARGE DATE: FAMILY PHYSICIAN: ANNABELLA DEXTER MD ATTENDING PHYSICIAN: NICHOLAS SLAUGHTER V MD QUENTIN ACEVEDO/rachel /[id number] d: 05/07/17 2259 t: 05/24/17 1214, OUTPATIENT REPORT
[~2017-05-07 15:25] MED LIST: ADVIL200 MG PO; ASPIRIN LO-DOSE81 MG PO; LIPITOR80 MG PO; NOVOLIN N100 UNIT/1 SUB-Q; NOVOLIN-N100 UNIT/M SUB-Q; NOVOLIN-R100 UNIT/M SUB-Q; NOVOLOG100 UNIT/M SUB-Q; PROTONIX40 MG PO
[2017-05-07 16:15] LABS: BICARBONATE 22.1 mmol/L (18.0-23.0); PCO2 45 mmHg (35-45); PO2 51 mmHg (80-90)
[2017-05-07 16:17] LABS: BASOPHIL # 0.1 K/uL (0.0-0.2); BASOPHIL % 0.6 %; EOSINOPHIL % 0.1 %; HEMATOCRIT 51.5 % (37.0-53.0); HEMOGLOBIN 17.8 g/dL (12.0-17.0); IMMATURE GRANULOCYTE # 0.1 K/uL (0.0-0.3); IMMATURE GRANULOCYTE % 0.8 %; LYMPHOCYTE # 0.9 K/uL (0.8-4.0); LYMPHOCYTE % 5.2 %; MCH 30.2 pg (27.0-34.0); MCHC 34.6 gm/dL (32.0-36.5); MCV 87.4 fl (83.0-98.0); MONOCYTE # 1.8 K/uL (0.0-1.0); MONOCYTE % 10.6 %; MPV 11.3 fl (9.4-12.4); NEUTROPHIL # (ANC) 14.2 K/uL (1.4-9.0); NEUTROPHIL % 82.7 %; NRBC % 0 /100WBC (0-0.00); PLATELET COUNT 274 K/uL (150-450); RBC 5.89 M/uL (4.00-6.00); RDW-CV 12.5 % (11.9-14.6)
[2017-05-07 16:18] LABS: WBC 17.1 K/uL (4.0-11.0)
[2017-05-07 16:26] LABS: INR - (THERAPEUTIC) 0.97 (0.92-1.07); PROTIME 10.2 SECONDS (9.8-11.4); PTT 22 SECONDS (25-32)
[2017-05-07 16:38] LABS: ALBUMIN 4.3 gm/dL (3.5-5.0); ALK PHOS 123 IU/L (33-138); ALT 50 IU/L (12-78); ANION GAP 24.2 (10.0-19.0); AST 31 IU/L (10-40); BLOOD UREA NITROGEN 23 mg/dL (6-24); CALCIUM 9.4 mg/dL (8.5-10.5); CHLORIDE 98 mMol/L (96-110); CO2 22 mMol/L (22-32); CREATININE 1.6 mg/dL (0.6-1.3); POTASSIUM 4.2 mMol/L (3.7-5.1); SODIUM 140 mMol/L (135-145); TOTAL PROTEIN 7.4 g/dL (6.0-8.4)
[2017-05-07 16:40] LABS: ESTIMATED GFR (MDRD EQUATION) 46; TOTAL BILIRUBIN 1.5 mg/dL (0.0-1.5)
[2017-05-07 17:08] LABS: BILIRUBIN URINE NEGATIVE (NEGATIVE); BLOOD URINE NEGATIVE /UL (NEGATIVE); COLOR URINE YELLOW (YELLOW); GLUCOSE URINE 1000 mg/dL (NEGATIVE); KETONE URINE 50 mg/dL (NEGATIVE); LEUKOCYTES URINE NEGATIVE /UL (NEGATIVE); NITRITE URINE NEGATIVE (NEGATIVE); PROTEIN URINE 15 mg/dL (NEGATIVE); SPEC GRAVITY URINE 1.025 (1.003-1.035); TURBIDITY URINE CLEAR (CLEAR); UROBILINOGEN URINE NORMAL (NORMAL)
[2017-05-07 17:19] LABS: RBC URINE 0-2 #/HPF (NEGATIVE); WBC URINE 0-2 #/HPF (NEGATIVE)
[2017-05-07 17:20] LABS: BACTERIA URINE RARE (NEGATIVE); EPITHELIAL URINE 0-2 #/HPF (NEGATIVE)
[2017-05-07 19:35] LABS: MAGNESIUM 1.8 mg/dL (1.8-2.6); PHOSPHORUS 5.8 mg/dL (2.5-4.9)
--- NOTE | 2017-05-07 22:09 | NUR ---
Patient cheif complaint was rapid heart rate. HR in ER was 108 remaining vss. Blood sugar was 458, was given in ER IV fluids and started on an insulin gtt. Admitted for DKA. Patient A/Ox3. VSS. Sinus rhythm. Lungs clear. Bowel sounds present. Scratches on his ankles. IV to Rt hand and Lt forearm. No pain. ADA diet. at bedside.
[2017-05-08 01:23] LABS: ANION GAP 9.3 (10.0-19.0); BLOOD UREA NITROGEN 20 mg/dL (6-24); CALCIUM 7.8 mg/dL (8.5-10.5); CHLORIDE 104 mMol/L (96-110); CO2 29 mMol/L (22-32); CREATININE 1.2 mg/dL (0.6-1.3); MAGNESIUM 1.6 mg/dL (1.8-2.6); POTASSIUM 3.3 mMol/L (3.7-5.1); SODIUM 139 mMol/L (135-145)
[2017-05-08 01:24] LABS: ESTIMATED GFR (MDRD EQUATION) > 60; PHOSPHORUS 1.9 mg/dL (2.5-4.9)
--- NOTE | 2017-05-08 04:44 | NUR ---
Patient A/Ox3. VSS on RA. Up standby assist. Lungs clear. Bowel sounds present. Voids per urinal. Recieved 1 gram of Magnesium. NS w 40meq of potassium at 120ml/hr, in RT hand. D5LR at 200ml/hr in LT forearm. Complaints of Rt arm tingle and numbness, state this is normal for him at night has a pitched nerve, tylenol given x1. Insulin gtt continues at 2units/hr and Q1hr ACCU checks.
[2017-05-08 08:00] LABS: SODIUM 141 mEq/L (135-145)
[2017-05-08 08:01] LABS: ANION GAP 8.5 (10.0-19.0); BLOOD UREA NITROGEN 18 mg/dL (6-24); CALCIUM 7.9 mg/dL (8.5-10.5); CHLORIDE 106 mMol/L (96-110); CO2 30 mMol/L (22-32); CREATININE 0.9 mg/dL (0.6-1.3); ESTIMATED GFR (MDRD EQUATION) > 60; MAGNESIUM 1.9 mg/dL (1.8-2.6); PHOSPHORUS 2.7 mg/dL (2.5-4.9); POTASSIUM 3.5 mEq/L (3.7-5.1)
--- NOTE | 2017-05-08 14:51 | NUR ---
Discharge Summary: Patient A/O x 3 and up independently. Vital signs stable on RA: HR 67, RR 16, BP 134/63, temperature 98.4F, O2 saturaiton 91% on RA, and denies pain or shortness of breath. Blood sugars stable. Discharge instructions included: signs/symptoms to be alert for, following up with Dr. Dexter in 2-7 days, alcohol cessation and DKA information, and general dismissal instructions. Patient and verbalize understanding of all teaching. Patient left PCU at 1451 to [facility] and then home to self care with . No other needs at time of discharge. Shantel RN 05/08/17
== END 2017-05-08 14:51 | disposition disaster alternative care site (69) ==
LOC: GMED 15:25 → GPCU 17:38
PROVIDERS: Emergency Medicine; ADMIT Internal Medicine
DX: E13.10 Other specified diabetes mellitus with ketoacidosis without coma (principal); I25.10 Atherosclerotic heart disease of native coronary artery without angina pectoris; I10 Essential (primary) hypertension; E78.00 Pure hypercholesterolemia, unspecified; N17.9 Acute kidney failure, unspecified; F10.10 Alcohol abuse, uncomplicated; E87.2 Acidosis; R00.0 Tachycardia, unspecified; Z87.891 Personal history of nicotine dependence; Z98.890 Other specified postprocedural states; Z79.82 Long term (current) use of aspirin; Z79.4 Long term (current) use of insulin; Z79.899 Other long term (current) drug therapy
CPT/HCPCS: G0378; G0480; J1940; J2405; J3475; J3480; J7030; J7040; J7121